=== PATIENT | female | born 1970 | race Caucasian/White ===

== ENCOUNTER 2017-11-03 06:36 | Day surgery (SDC) | payer MEDICAID ==
[~2017-11-03] VITALS: Ht 154.9 cm; Wt 118.8 kg
[~2017-11-03 06:36] MED LIST: BACL10TA PO; CANA100T PO; IBUP800T24 PO; LOSA50TA6 PO; MEDR150I23 IM; METF-372 PO; OMEP20TA PO; OXYC325T14 PO; PREG75CA PO; RIZA10TA12 PO; VENL75TA PO
[2017-11-03] MEDS ORDERED: IODIXANOL 320MG/ML 100ML BTL IV ONE ×2 (07:18→07:52)
[2017-11-03] MEDS ORDERED: LIDOCAINE HCL 2 %PF INJ 10ML AMP IJ ONE (07:18)
[2017-11-03] MEDS ORDERED: MIDAZOLAM HCL 1MG/1ML-2 ML VIAL ONE ×2 (07:50→08:36)
[2017-11-03] MEDS ORDERED: ANGIOMAX 250 MG VIAL IV ONE (07:50)
[2017-11-03] MEDS ORDERED: fentaNYL CITRATE 100 MCG/2 ML VL ONE ×2 (07:50→08:41)
[2017-11-03] MEDS ORDERED: SODIUM CHL 0.9% 0 ML ONE (07:51)
[2017-11-03] MEDS ORDERED: VERAPAMIL 2.5MG/ML INJ 2ML VIAL IV ONE (07:53)
[2017-11-03] MEDS ORDERED: HEPARIN SODIUM (PORCINE) 5000 UNITS/ML 1ML VIAL ONE (08:44)
== END 2017-11-03 11:00 | disposition home or self-care (01) ==
LOC: CATH 06:36
PROVIDERS: ATTEND Internal Medicine
DX: R94.39 Abnormal result of other cardiovascular function study (principal)
CPT/HCPCS: C1769; C1894; J1644; J3010; J7030; 82962; 93454; 99152; J2250; Q9967